=== PATIENT | male | born 1950 | race Caucasian/White ===

== ENCOUNTER 2019-08-28 10:08 | Outpatient (CLI) | payer MEDICARE, OTHER, SELFPAY ==
--- NOTE | ~2019-08-28 | XR_ITS ---
EXAMINATION: XR chest 2V EXAM DATE: 08/28/2019 10:30 INDICATION: Cough. TECHNIQUE: Frontal and lateral projections of the chest obtained and reviewed. There is no prior kortney dy for comparison. FINDINGS: The lungs are clear. There are no pleural effusions. The cardiomediastinal silhouette is within normal limits. There is no pneumothorax suspected. There are bony degenerative changes. IMPRESSION: No acute cardiopulmonary findings. Reviewed, dictated and finalized at location B. S CUTTER
== END 2019-08-28 10:09 | disposition home or self-care (01) ==
PROVIDERS: PCP Family Medicine; Visit Provider Physician Assistant
DX: R04.2 Hemoptysis (principal)
CPT/HCPCS: 71046

== ENCOUNTER → 2021-01-23 13:48 | Outpatient (CLI) | payer MEDICARE, OTHER, SELFPAY ==
--- NOTE | ~2021-01-23 | XR_ITS ---
EXAMINATION: XR thoracic spine 3V DATE: 01/23/2021 14:15 INDICATION: Back pain radiating down the legs images of the feet TECHNIQUE: AP, lateral and lateral swimmer's views of the thoracic spine were obtained. COMPARISON: 08/28/2019 FINDINGS: Alignment is normal. There is no fracture. The vertebral body heights are maintained. There is unchanged moderate loss of intervertebral disc space height of the midthoracic spine. Small degen erative osteophytes project from the anterior endplates of multiple vertebral bodies. IMPRESSION: 1. Moderate thoracic spondylosis without acute findings or significant interval change. Reviewed, dictated and finalized at location B.
== END ==
PROVIDERS: PCP Family Medicine; Visit Provider Family Medicine
DX: M47.894 Other spondylosis, thoracic region (principal)
CPT/HCPCS: 72072

== ENCOUNTER 2021-02-06 12:32 | Outpatient (CLI) | payer MEDICARE, OTHER, SELFPAY ==
--- NOTE | ~2021-02-06 | XR_ITS ---
EXAMINATION: XR lg joint inject/asp w image DATE: 02/06/2021 13:46 INDICATION: Right hip arthritis. TECHNIQUE: A time-out was performed to verify the patient's name, date of , and procedure to b e performed. The procedure including the risks, benefits, and alternatives was discussed with the pat ient. Risks discussed included bleeding and infection. The patient understood the risks and agreed to proceed. The skin overlying the right hip joint was prepped and draped in usual sterile fashion. A nesthetic was administered with 1% lidocaine subcutaneously. A 22 G needle was advanced under fluoro scopic guidance into the joint. Injection of 1 mL of Omnipaque 240 confirmed intra-articular positio n of the needle. Subsequently, injectate consisting of 2 mL 0.5% bupivacaine and 1 mL 80 mg/mL Depo- Medrol was instilled. The needle was removed and the entry site was cleaned and dressed. There were no immediate complications. Fluoroscopy exposure time was 0.1 minutes. The total number of images wa s 2. FINDINGS: Real-time fluoroscopy demonstrates the needle in the right hip joint. Patient's pain prior to procedure:/. Patient's pain following the procedure: 12/05. IMPRESSION: 1. Fluoroscopy guided right hip joint injection of local anesthetic and steroid with decrease in the patient's presenting pain. Reviewed, dictated and finalized at location A.
--- NOTE | ~2021-02-06 | XR_ITS ---
EXAMINATION: XR lg joint inject/asp add DATE: 02/06/2021 13:47 INDICATION: Left hip arthritis. TECHNIQUE: A time-out was performed to verify the patient's name, date of , and procedure to b e performed. The procedure including the risks, benefits, and alternatives was discussed with the pat ient. Risks discussed included bleeding and infection. The patient understood the risks and agreed to proceed. The skin overlying the left joint was prepped and draped in usual sterile fashion. Anesth etic was administered with 1% lidocaine subcutaneously. A 22 G needle was advanced under fluoroscopi c guidance into the joint. Injection of 1 mL of Omnipaque 240 confirmed intra-articular position of the needle. Subsequently, injectate consisting of 2 mL 0.5% bupivacaine and 1 mL 80 mg/mL Depo-Medro l was instilled. The needle was removed and the entry site was cleaned and dressed. There were no i mmediate complications. Fluoroscopy exposure time was 0.1 minutes. The total number of images was 2. FINDINGS: Real-time fluoroscopy demonstrates the needle in the left hip joint. Patient's pain prior t o procedure:03/07. Patient's pain following the procedure: 12/05. IMPRESSION: 1. Fluoroscopy guided left hip joint injection of local anesthetic and steroid with decrease in the p atient's presenting pain. Reviewed, dictated and finalized at location A. IMPRESSION: 1. Fluoroscopy guided left hip joint injection of local anesthetic and steroid with decrease in the patient's presenting pain.
== END 2021-02-06 12:33 | disposition home or self-care (01) ==
PROVIDERS: PCP Family Medicine; Visit Provider Orthopaedic Surgery
DX: M16.0 Bilateral primary osteoarthritis of hip (principal)
CPT/HCPCS: 20610; 77002; J1040; Q9966

== ENCOUNTER → 2021-08-11 00:55 | Outpatient (CLI) | payer MEDICARE, OTHER, SELFPAY ==
[2021-08-12 18:17] LABS: SARS-CoV-2 RNA PCR Negative
== END ==
PROVIDERS: PCP Family Medicine; Visit Provider Family Medicine
DX: Z20.822 Contact with and (suspected) exposure to COVID-19 (principal)
CPT/HCPCS: C9803; U0003; U0005

== ENCOUNTER 2022-05-09 00:39 | Day surgery (SDC) | payer MEDICARE, OTHER, SELFPAY ==
[2022-04-25 13:31] VITALS: BMI 22.9
--- NOTE | 2022-05-08 20:32 | PM.HPGS ---
History of Present Illness History of Present Illness Consent: Risks, benefits, and alternatives have been discussed and questions answered. Patient agrees to proceed with procedure. Chief complaint: dysphagia Narrative: Mukund Rodriguez is a 71 year old male who has had multiple episodes of choking, either on food, or mcous He has had a cervical fusion procedure. but he was having some symptoms prior to that. At times it will feel like food gets caught in his chest but more often he will choke as though he cannot get something to go down. A few occasions has felt that his airway was closing up. He has had issues with reflux and sometimes would regurgitate at night but starting Prilosec has taking care of that Review of Systems Review of Systems: All systems reviewed & are unremarkable except as noted in HPI and below PMFSH Past Medical History Medical History BPH (benign prostatic hyperplasia) Chronic anemia Surgical History Surgical History History of inguinal hernia repair, bilateral Family History Family History Mother Patient's mother is in good health Family history of elevated blood lipids Sibling Patient's brother is in good health Other Family history of arthritis Social History Social History Smoking packs per day: 0.5 Smoking cigarettes per day: 10.0 Years smoked: 20 Smoking pack-years: 10.00 Smoking status: Former smoker Tobacco type: cigarettes Second hand tobacco smoke exposure: No Smoking end date: 07/29/78 Alcohol intake: never Substance use: never Substance use type: does not use Living arrangements: with family Gender identity (if verbalized by the patient): Male Sexual Orientation (if Verbalized by the Patient): Straight or Heterosexual Spiritual care concerns: No Meds Home Medications and Allergies Home Medications Medication Instructions Recorded Confirmed Type acetaminophen 500 mg tablet 500 mg PO Q6H PRN Pain 01/26/21 05/09/22 History (Tylenol Extra Strength) omeprazole magnesium 20 mg 20 mg PO DAILY #30 tabs 09/26/21 05/09/22 Rx tablet,delayed release (Prilosec OTC) tamsulosin 0.4 mg capsule 0.4 mg PO DAILY #90 caps 01/26/22 05/09/22 Rx ramipril 2.5 mg capsule 2.5 mg PO DAILY 04/25/22 05/09/22 History Allergies Allergy/AdvReac Type Severity Reaction Status Date / Time No Known Allergies Allergy Verified 05/09/22 09:17 Exam Const: General: alert Orientation/consciousness: patient oriented x3 Resp: Auscultation: clear to auscultation bilaterally Cardio: Rhythm: regular rhythm GI: GI Palp: Yes Soft to palpation and No Tenderness to palpation present (GI) Neuro: General: patient oriented x3 Assessment and Plan Assessment and plan (1) Dysphagia: Code(s): R13.10 - Dysphagia, unspecified Status: Acute Assessment and Plan: EGD with possible biopsy or dilatation or cautery.
[2022-05-09 09:10] VITALS: BP 139/58; PULSE 70; RESP 18; TEMP 36.6; O2SAT 100; BMI 22.4
[2022-05-09] MEDS: LACTATED RINGERS 1,000 ML 150 ML IV CONT (09:36)
--- NOTE | 2022-05-09 09:57 | WPDANESEPPF ---
Anes - Initial Pre Proc Eval Procedure: Operation Date: 05/09/22 10:30 Proposed Procedures p Esophagogastroduodenoscopy - Judd Edwards MD Date/Time: 05/09/22 09:57 Surgeon: Judd Edwards MD Pre Op Diagnosis: dysphagia Patient Data Age: 71 Gender: M Height: 1.57 m Weight: 55.5 kg Last Vital Signs Temp 97.8 F 05/09/22 09:10 Pulse 70 05/09/22 09:10 Resp 18 05/09/22 09:10 BP 139/58 L 05/09/22 09:10 Pulse Ox 100 05/09/22 09:10 O2 Del Method Room Air 05/09/22 09:10 Allergies Allergy/AdvReac Type Severity Reaction Status Date / Time No Known Allergies Allergy Verified 05/09/22 09:17 Home Medications Medication Instructions Recorded Confirmed Type acetaminophen 500 mg tablet 500 mg PO Q6H PRN Pain 01/26/21 05/09/22 History (Tylenol Extra Strength) omeprazole magnesium 20 mg 20 mg PO DAILY #30 tabs 09/26/21 05/09/22 Rx tablet,delayed release (Prilosec OTC) tamsulosin 0.4 mg capsule 0.4 mg PO DAILY #90 caps 01/26/22 05/09/22 Rx ramipril 2.5 mg capsule 2.5 mg PO DAILY 04/25/22 05/09/22 History Patient hx anesthesia problems: none Family hx anesthesia problems: none Results Review: All pre-operative results and documents have been reviewed as part of the pre-operative evaluation. [facility] Past Medical History Medical History BPH (benign prostatic hyperplasia) Chronic anemia Surgical History Surgical History History of inguinal hernia repair, bilateral Family History Family History Mother Patient's mother is in good health Family history of elevated blood lipids Sibling Patient's brother is in good health Other Family history of arthritis Social History Social History Smoking packs per day: 0.5 Smoking cigarettes per day: 10.0 Years smoked: 20 Smoking pack-years: 10.00 Smoking status: Former smoker Tobacco type: cigarettes Second hand tobacco smoke exposure: No Smoking end date: 07/29/78 Alcohol intake: never Substance use: never Substance use type: does not use Living arrangements: with family Gender identity (if verbalized by the patient): Male Sexual Orientation (if Verbalized by the Patient): Straight or Heterosexual Spiritual care concerns: No Anes - Eval Final PreProcedure Day of Procedure 05/09/22 09:57 Patient weight: normal Heart: regular rate and rhythm Lungs: clear to auscultation Airway: Mallampati scale class II Neurological: alert and oriented Last oral intake: >/= 8 hours ASA classification: II Emergent: no Anesthetic plan: proceed Anesthesia type and monitoring: general GIVS and standard monitoring Results Review: All pre-operative results and documents have been reviewed as part of the pre-operative evaluation. Informed Consent: The patient's anesthetic plan and its attendant risks and benefits were discussed with the patient/family/POA. Questions were solicited and answers provided to the satisfaction of the patient/family/POA.
[2022-05-09 10:46] VITALS: BP 108/68; PULSE 78; RESP 15; O2SAT 98
[2022-05-09 10:56] VITALS: BP 109/69; PULSE 73; RESP 16; O2SAT 100
[2022-05-09 11:06] VITALS: BP 130/81; PULSE 69; RESP 22; O2SAT 99
== END 2022-05-09 11:13 | disposition home or self-care (01) ==
PROVIDERS: PCP Family Medicine; Visit Provider Internal Medicine Gastroenterology
PROC: 0DJ08ZZ Inspection of Upper Intestinal Tract, Via Natural or Artificial Opening Endoscopic (ICD-10-PCS; CPT 43235; principal; 2022-05-09 10:30)
DX: R13.10 Dysphagia, unspecified (principal); K21.9 Gastro-esophageal reflux disease without esophagitis; Z87.891 Personal history of nicotine dependence
CPT/HCPCS: 43239; 43450; 88305; J2704; J7120

== ENCOUNTER 2022-09-17 12:54 | Outpatient (CLI) | payer MEDICARE, OTHER, SELFPAY ==
--- NOTE | ~2022-09-17 | XR_ITS ---
EXAMINATION: XR lg joint inject/asp w image DATE: 09/17/2022 14:05 INDICATION: Right hip osteoarthritis TECHNIQUE: A time-out was performed to verify the patient's name, date of , and procedure to b e performed. The procedure including the risks, benefits, and alternatives was discussed with the pat ient. Risks discussed included bleeding and infection. The patient understood the risks and agreed to proceed. The skin overlying the right hip joint was prepped and draped in usual sterile fashion. A nesthetic was administered with 1% lidocaine subcutaneously. A 22 G needle was advanced under fluoro scopic guidance into the joint. Injection of 1 mL of Omnipaque 240 confirmed intra-articular positio n of the needle. Subsequently, injectate consisting of 3 mL of a 2:1 mixture of 0.5% Marcaine: 80 mg /mL Depo-Medrol for a total dosage of 80 mg Depo-Medrol was injected. Washout of contrast was seen co nfirming intra-articular administration. The needle was removed and the entry site was cleaned and dr essed. There were no immediate complications. Fluoroscopy exposure time was 0.1 minutes. The total n umber of images was 2. Total DAP was 0.655 Gycm^2 FINDINGS: Real-time fluoroscopy demonstrates the needle in the right hip joint. Patient's pain prior to procedure:11/05. Patient's pain following the procedure: 12/05. IMPRESSION: 1. Successful right hip joint injection of local anesthetic and steroid with slight increase in the p atient's presenting pain. Reviewed, dictated and finalized at location A. SCHOOL COMBINATION TEACHER IMPRESSION: 1. Successful right hip joint injection of local anesthetic and steroid with sl ight increase in the patient's presenting pain.
== END 2022-09-17 12:55 | disposition home or self-care (01) ==
LOC: ANHIMG 12:59
PROVIDERS: PCP Family Medicine; Visit Provider Orthopaedic Surgery
DX: M16.11 Unilateral primary osteoarthritis, right hip (principal)
CPT/HCPCS: 20610; 77002; J1040; Q9966

== ENCOUNTER → 2022-10-25 11:06 | Outpatient (CLI) | payer MEDICARE, OTHER, SELFPAY ==
--- NOTE | ~2022-10-25 | XR_ITS ---
XR wrist LT w scaphoid DATE: 10/25/2022 12:37 INDICATION: Left wrist pain TECHNIQUE: 4 views COMPARISON: None FINDINGS: Arterial calcification. Mild chondrocalcinosis at the triangular cartilage. Minimal carpal chondrocalcinosis. Mild osteoarthritis at the triscaphe and first carpometacarpal joints. There is osteoarthritis at the second metacarpophalangeal joint. No fracture, dislocation, periosteal reaction or bone destruction. IMPRESSION: Polyarticular osteoarthritis Mild chondrocalcinosis Arterial calcification Reviewed, dictated and finalized at location L.
== END ==
PROVIDERS: PCP Family Medicine; Visit Provider Physician Assistant
DX: M25.532 Pain in left wrist (principal); M19.032 Primary osteoarthritis, left wrist; M11.232 Other chondrocalcinosis, left wrist; I70.90 Unspecified atherosclerosis
CPT/HCPCS: 73110

== ENCOUNTER 2023-08-21 08:00 | Outpatient (CLI) | payer MEDICARE, OTHER, SELFPAY ==
--- NOTE | ~2023-08-21 | US_ITS ---
US art doppler w press LE BI INDICATION: Peripheral vascular disease. TECHNIQUE: Segmental pressures and plethysmographic and Doppler waveforms of the brachial and lower e xtremity arteries were obtained. COMPARISON: None. FINDINGS: Right and left brachial artery pressures of 154 mm Hg and 139 mm Hg, respectively, are concordant (no rmal difference <= 30 mmHg). The right ankle-brachial index (RUDDY) is 1.05 (normal >= 0.9-1.0). The right great toe-brachial index (TBI) is 0.51 (normal >= 0.60). The left RUDDY is 1.08. The left TBI is 0.44. IMPRESSION: 1. Normal bilateral ankle-brachial indices. 2: Mildly decreased toe brachial indices consistent with peripheral arterial disease. Reviewed, dictated and finalized at location B. ENT SAFETY MANAGER IMPRESSION: 1. Normal bilateral ankle-brachial indices. 2: Mildly decreased toe brachial indices consistent with peripheral arterial di sease.
== END 2023-08-21 08:01 | disposition home or self-care (01) ==
LOC: ANHIMG 08:07
PROVIDERS: PCP Family Medicine; Visit Provider Nurse Practitioner Family
DX: I70.90 Unspecified atherosclerosis (principal); I73.9 Peripheral vascular disease, unspecified
CPT/HCPCS: 93923

== ENCOUNTER 2023-09-25 10:30 | Outpatient (CLI) | payer MEDICARE, OTHER, SELFPAY ==
--- NOTE | ~2023-09-25 | US_ITS ---
EXAMINATION: US venous doppler [facility] DATE: 09/25/2023 10:59 INDICATION: Swelling and varicose veins at the bilateral lower limbs TECHNIQUE: Grayscale ultrasound images without and with compression and Doppler ultrasound images of the bilateral lower extremity veins were obtained. COMPARISON: None. FINDINGS: The visualized portions of right common femoral vein, profunda (deep) femoral vein, femoral vein, pop liteal vein, posterior tibial veins, peroneal veins, gastrocnemius vein and greater saphenous vein ou tflow are patent. The visualized portions of left common femoral vein, profunda femoral vein, femoral vein, popliteal v ein, posterior tibial veins, peroneal veins, gastrocnemius vein and greater saphenous vein outflow ar e patent. IMPRESSION: 1. No deep venous thrombosis in either lower limb. Reviewed, dictated and finalized at location B. RACTIVE MULTIMEDIA DESIGNER
== END 2023-09-25 10:31 | disposition home or self-care (01) ==
LOC: ANHIMG 10:31
PROVIDERS: PCP Family Medicine; Visit Provider Family Medicine
DX: I83.893 Varicose veins of bilateral lower extremities with other complications (principal)
CPT/HCPCS: 93970

== ENCOUNTER 2023-10-01 09:51 | Outpatient (CLI) | payer MEDICARE, OTHER, SELFPAY ==
--- NOTE | 2023-10-01 10:58 | ECG_ITS ---
Measurements Intervals [place] Rate: 62 P: 76 WI: 150 QRS: 21 QRSD: 81 T: 52 QT: 402 QTc: 409 Interpretive Statements SINUS RHYTHM BASELINE ARTIFACT- I, II, III, AVR, AVL, AVF, V1-V2 NORMAL ECG NO PREVIOUS ECG AVAILABLE FOR COMPARISON Electronically Signed On 10-01-2023 11:52:28 PSYCHIATRY RESIDENT by Jean-Claude Rivero D.O.
[2023-10-01 11:36] LABS: Albumin Level 4.2 g/dL (3.5-5.1); Anion Gap 7 mmol/L (8-16); Blood Urea Nitrogen 16 mg/dL (9-20); Calcium 8.9 mg/dL (8.4-10.2); Carbon Dioxide 28 mmol/L (22-30); Chloride 104 mmol/L (98-107); Estimated Glomerular Filt Rate > 60; Glucose 91 mg/dL (65-110); Potassium 3.9 mmol/L (3.4-5.0); Prothrombin Time 13.4 Seconds (11.1-14.7); Sodium 139 mmol/L (137-145)
[2023-10-01 11:37] LABS: Basophils Percent Auto 0.5 % (0.2-1.2); Eosinophils Absolute Auto 0.2 K/mm3 (0-0.3); Hematocrit 35.7 % (42.0-52.0); Hemoglobin 11.7 g/dL (14.0-18.0); Immature Granulocyte Absolute 0.02 K/mm3 (0.00-0.031); Immature Granulocyte Percent A 0.2 % (0-0.5); Lymphocytes Absolute Auto 2.54 K/mm3 (0.9-3.2); Lymphocytes Percent Auto 30.1 % (18.3-44.2); Mean Corpuscular HGB Conc 32.8 g/dl (32-36); Mean Corpuscular Hemoglobin 32.4 pg (26-34); Mean Corpuscular Volume 98.9 fl (80-100); Mean Platelet Volume 9.9 fl (7.4-10.4); Monocytes Absolute Auto 0.6 K/mm3 (0.1-0.6); Monocytes Percent Auto 6.8 % (2.6-8.5); Neutrophils Absolute Auto 5.1 K/mm3 (1.3-6.7); Neutrophils Percent Auto 60.4 % (45.5-73.1); Partial Thromboplastin Time 30.2 SECONDS (22.3-36.8); Platelet Count Result 316 k/mm3 (150-375); Red Blood Count 3.61 M/mm3 (4.6-6.20); Red Cell Distribution Width 11.8 % (11.5-14.5); White Blood Count 8.4 K/mm3 (4.5-10.0)
[2023-10-01 11:48] LABS: Hemoglobin A1C 5.1 % (<5.7)
[2023-10-01 12:29] LABS: Appearance Urine Clear (Clear); Bilirubin Urine Negative (Negative); Blood Urine Negative (Negative); Color Urine Yellow (Yellow); Glucose Urine UA Negative (Negative); Ketones Urine Negative (Negative); Leukocyte Esterase Ur Negative LEU/UL (Negative); Nitrate Urine Negative (Negative); Protein Urine Negative (Negative); Specific Grav Ur 1.017 (1.001-1.035); Urobilinogen Urine 0.2 mg/dL (<2.0); pH Urine 5.5 (5.0-9.0)
[2023-10-01 12:32] LABS: Add Urine Microscopic? NO
[2023-10-01 12:38] LABS: Urine Cotinine NEGATIVE
[2023-10-01 13:07] LABS: MRSA (PCR) NOT DETECTED (NOT DETECTE)
== END 2023-10-01 09:52 | disposition home or self-care (01) ==
LOC: ANHSURGERY 09:58
PROVIDERS: PCP Family Medicine; Visit Provider Orthopaedic Surgery
DX: Z01.818 Encounter for other preprocedural examination (principal); M16.11 Unilateral primary osteoarthritis, right hip
CPT/HCPCS: 80048; 80307; 81003; 82040; 83036; 85025; 85610; 85730; 87641; 93005

== ENCOUNTER 2023-10-15 00:08 | Day surgery (SDC) | payer MEDICARE, OTHER, SELFPAY ==
--- NOTE | 2023-10-01 09:56 | PC.NURSE ---
Addendum entered by Rosetta Torres RN 10/01/23 11:05: PATIENT HAS ALREADY STARTED HOLDING KEISHA ASPIRIN, WHICH HE USES FOR PAIN. HE RELAYS UNDERSTANDING THAT IT NEEDS TO BE HELD 7 DAYS PRE-OP(LAST DOSE 10/07/23). Original Note: Report to the Outpatient Waiting Room, entrance under the green pavilion located off [facility], at time __6:00AM on date ___10/15/23____. Planned Procedure Time: __7:30AM . Time changes happen often and if your time is changed the preop area will call you the afternoon before. - You and your visitor will be asked to self-screen and do not enter if you have any COVID symptoms. - A mask is optional within the hospital at this time. Patients may have clear liquids (water, carbonated beverages, clear teas, apple juice) until 3 hours prior to surgery with a maximum of 20 ounces. - No food from midnight until time of surgery. Take the following medications with a SIP of water the morning of surgery: ____NONE DO NOT STOP ANY OF YOUR OTHER PRESCRIPTION MEDICATIONS PRIOR TO SURGERY ?EXCEPT THE FOLLOWING Medications to discontinue per physician NONE Date to take last dose Please no make-up, nail danish, hairspray, perfume, deodorant, or body powder the day of surgery. No jewelry (including any body piercings) or valuables the day of surgery, leave them at home. Please take a shower or bath the night before, or the morning of, surgery with an antibacterial soap. Wear comfortable, loose fitting clothing. - Jewelry must be removed prior to entering the operating room. Rings and piercings that are not removed may be cut off. - The hospital will not accept responsibility for valuables. - Please leave all valuables, including medications, at home the day of surgery. If you are going home after surgery, a licensed milk tanker driver must drive you home. - NO public transportation without another adult if you receive anesthesia. - We recommend that an adult stay with you for 24 hours following discharge. - We also recommend that you do not drive, make important decision, drink alcoholic beverages, or take any drugs that were not prescribed by your health care provider for at least 24 hours after your discharge time. Follow any additional instructions given to you from your surgeon. HIBICLENS SHOWER PER DR YOST. NO SHAVING OF BODY HAIR. If you or anyone in your household have experienced Covid symptoms in the past week, please notify your surgeon or the nurse liaison at the phone number below for possible testing. Telephone instructions given to ___PATIENT and asked if any additional questions and then verbalized understanding. Patient advised to call surgeon office or pre surgery nurse liaison [phone] if any additional questions.
[2023-10-01 10:15] VITALS: BP 155/54; PULSE 66; RESP 16; TEMP 36.9; O2SAT 99; BMI 25.2
[2023-10-15] VITALS (19 sets, daily range): BP systolic 112–133; BP diastolic 43–57; PULSE 46–78; RESP 12–18; TEMP 36.6–37.1; O2SAT 95–100; BMI 24.1
--- NOTE | ~2023-10-15 | XR_ITS ---
EXAMINATION: XR hip RT 1V DATE: 10/15/2023 11:25 INDICATION: Postoperative evaluation following right total hip arthroplasty TECHNIQUE: Anteroposterior view of the right hip was obtained. COMPARISON: Radiographs dated 08/09/2023 FINDINGS: Interval placement of a noncemented right total hip arthroplasty which appears well seated in near an atomic alignment. The acetabular component is affixed with at least 3 screws. Expected small amount o f subcutaneous gas in the postoperative bed. No fractures identified. Likely bilateral vasectomy cli ps project over the scrotum. IMPRESSION: 1. Right total hip arthroplasty, negative for postoperative purposes. Reviewed, dictated and finalized at location A.
[2023-10-15] MEDS: ACETAMINOPHEN 500 MG TABLET 1000 MG PO (06:30)
[2023-10-15] MEDS: LACTATED RINGERS 1,000 ML 30 ML IV CONT ×2 (06:30→10:42)
--- NOTE | 2023-10-15 06:43 | WPDANESEPPF ---
Anes - Initial Pre Proc Eval Procedure: Operation Date: 10/15/23 07:30 Proposed Procedures p Right Total Hip Arthroplasty - Hari Tena MD Date/Time: 10/15/23 06:43 Surgeon: Hari Tena MD Pre Op Diagnosis: Rt Hip O.A. Patient Data Age: 73 Gender: M Height: 1.55 m Weight: 60.5 kg Last Vital Signs Temp 36.9 C 10/01/23 10:15 Pulse 66 10/01/23 10:15 Resp 16 10/01/23 10:15 BP 155/54 H 10/01/23 10:15 Pulse Ox 99 10/01/23 10:15 O2 Del Method Room Air 10/01/23 10:15 Allergies Allergy/AdvReac Type Severity Reaction Status Date / Time No Known Allergies Allergy Verified 10/01/23 10:05 Home Medications Medication Instructions Recorded Confirmed Type acetaminophen 500 mg tablet 500 mg PO Q6H PRN Pain 01/26/21 10/01/23 History (Tylenol Extra Strength) aspirin-caffeine 500 mg-32.5 mg 1 tablet PO QAM 10/01/23 10/01/23 History tablet ([facility]) chlorhexidine gluconate 4 % 1 applic topical DAILY #237 mL 10/01/23 10/01/23 Rx topical liquid (Hibiclens) oiipbmzk-wxyn-prasl acid 400 1 tablet PO DAILY 10/01/23 10/01/23 History mcg-lycopene 600 mcg-ginkgo 120 mg tablet ramipril 2.5 mg capsule 2.5 mg PO QAM 10/01/23 10/01/23 History tamsulosin 0.4 mg capsule 0.4 mg PO HS 10/01/23 10/01/23 History omeprazole 40 mg capsule,delayed 40 mg PO QAM #90 caps 10/08/23 Rx release Patient hx anesthesia problems: none Family hx anesthesia problems: none Results Review: All pre-operative results and documents have been reviewed as part of the pre-operative evaluation. [facility] Past Medical History Medical History Arterial calcification BPH (benign prostatic hyperplasia) Chronic anemia Other fatigue Peripheral artery disease Surgical History Surgical History History of inguinal hernia repair, bilateral Family History Family History Mother Patient's mother is in good health Family history of elevated blood lipids Sibling Patient's brother is in good health Other Family history of arthritis Social History Social History Smoking packs per day: 1 Smoking cigarettes per day: 20.0 Years smoked: 12 Smoking pack-years: 12.00 Smoking status: Former smoker Tobacco type: cigarettes Second hand tobacco smoke exposure: No Smoking end date: 01/26/79 Alcohol intake: never Substance use: never Substance use type: does not use Living arrangements: with family Additional living arrangements comments: Occupation/Education: retired Gender identity (if verbalized by the patient): Male Sexual Orientation (if Verbalized by the Patient): Straight or Heterosexual Spiritual care concerns: No Anes - Eval Final PreProcedure Day of Procedure 10/15/23 06:43 Patient weight: normal Heart: regular rate and rhythm Lungs: clear to auscultation Airway: Mallampati scale class II Neurological: alert and oriented Last oral intake: >/= 8 hours ASA classification: III Emergent: no Anesthetic plan: proceed Anesthesia type and monitoring: general ETT and standard monitoring Results Review: All pre-operative results and documents have been reviewed as part of the pre-operative evaluation. Informed Consent: The patient's anesthetic plan and its attendant risks and benefits were discussed with the patient/family/POA. Questions were solicited and answers provided to the satisfaction of the patient/family/POA.
[2023-10-15] MEDS: TRANEXAMIC ACID 1,000MG/ISO100 1,000 MG/100 ML BAG 200 MG IVPB (07:00)
--- NOTE | 2023-10-15 07:17 | WPDHPUPDATE1 ---
History and Physical Update Update Date/Time: 10/15/23 07:17 History and Physical has been reviewed, including an updated exam of the patient. There are NO changes in the patient's condition. Risks, benefits, and alternatives have been discussed and questions answered. Patient agrees to proceed with procedure.
[2023-10-15] MEDS: ceFAZolin 2 GM/D5W 50 ML 2 GM/50 ML BAG IVPB ×2 (07:28→18:23)
[2023-10-15] MEDS: SODIUM CHLORIDE 0.9% IV 37.7 ML, MORPHINE SULFATE INJ (*CRX) 2 MG, ROPivacaine HCL 1% 2... INFILTRATE (08:08)
[2023-10-15] MEDS: TRANEXAMIC ACID 1,000 MG/10 ML AMPUL 1000 MG IV PUSH (09:52)
--- NOTE | 2023-10-15 10:47 | P.OP_ITS ---
Procedure Note - Detailed Date of Procedure 10/15/23 Pre-op Diagnosis Rt Hip djd Post-op Diagnosis Same Procedure Performed R ANJALI Surgeon Hari Tena MD Anesthesia General Description of Procedure THE PATIENT WAS TAKEN TO THE OPERATING ROOM IN STABLE CONDITION AND WAS PLACED IN THE LATERAL DECUBITUS AND THE RIGHT LOWER EXTREMITY WAS PREPPED AND DRAPED IN THE STERILE FASHION. INCISION WAS MADE IN THE POSTERIOR LATERAL SIDE OF THE HIP, DOWN TO THE FASCIA LAYER. THE FASCIA WAS INCISED. THE HIP WAS EXPOSED. THE SHORT EXTERNAL ROTATORS WERE EXPOSED. THE SCIATIC NERVE WAS IDENTIFIED. INCISION WAS MADE THROUGH THE SHORT EXTERNAL ROTATORS AND THE CAPSULE OF THE HIP JOINT. THE HIP WAS DISLOCATED. AN OSTEOTOMY WAS MADE TO THE FEMORAL NECK ABOUT 1 CM PROXIMAL TO THE LESSER TROCHANTER. THE ACETABULUM WAS EXPOSED. THE ACETABULUM WAS SHALLOW AND WIDE AT THE SUPERIOR AND LATERAL LEUNG. THERE WAS LOKESH E DEFICIENT BONE STOCK IN THE SUPERIOR LATERAL WALL. THERE WAS SEVERE DJD SEEN. BEGINNING WITH A 49 REAMER THE ACETABULUM WAS REAMED TO 55 MM. BONE GRAFT WAS PLACED IN THE MEDIAL WALL AND SUPERIOR LATERAL WALL. A 55 MM TRIAL WAS PLACED IN 35 DEG OF ABDUCTION AND ANTEVERSION WAS IN ALIGNMENT WITH THE TRANS ACETABULAR LIGAMENT. THE FIT WAS EXCELLENT. THE TRIAL WAS REMOVED. A 56 MM BIOMET G7 COMPONENT WAS THEN TAPPED IN TO PLACE IN 35 DEG OF ABDUCTION AND ANTEVERSION IN ALIGNMENT WITH THE TRANSVERSE ACETABULAR LIGAMENT. 3 SCREWS WERE PLACED TO SECURE THE ACETABULAR IMPLANT. THE SCREWS HAD EXCELLENT BITES. THE ACETABULAR LINER WAS PLACED AND CHECKED FOR STABILITY. NEXT THE FEMUR WAS PREPARED WITH INITIAL CANAL FINDER THEN SEQUENTIAL BROACHING WITH A TAPERLOC HIP SYSTEM, UNTIL A 12 BROACH FIT WELL IN 15 OF ANTEVERSION. A 0 HIGH OFFSET NECK WITH 36 MM HEAD TRIAL WAS PLACED. THE SHUCK TEST WAS EXCELLENT AND THE STABILITY IN FLEXION AND ROTATION WAS EXCELLENT. LEG LENGTHS WERE GROSSLY EQUAL. TRIALS WERE REMOVED. A BIOMET TAPERLOC 12 STEM WAS PLACED WITH A HIGH OFFSET NECK. THE FIT WAS EXCELLENT IN 15 DEG OF ANTEVERSION. A 0 CERAMIC 36 MM FEMORAL HEAD WAS PLACED. THE HIP WAS TRIALED AND THE STABILITY WAS EXCELLENT WERE THE LEG LENGTHS AND THE SHUCK TEST. THE WOUND WAS IRRIGATED WITH STERILE BETADINE AND WATER FOR 3 MIN. THEN WASHED AGAIN. THE SCIATIC NERVE WAS IDENTIFIED AGAIN. THE CAPSULE AND THE EXTERNAL ROTATORS WERE APPROXIMATED WITH NUMBER 1 VICRYL. THE FASCIA WITH No 2 QUIL AND THE SUB CUTANEOUS LAYER WITH 2-0 ABSORBABLE SUTURE AND A RUNNING 3-0 SUBCUTICULAR STITCH FOR THE SKIN. DERMABOND WAS PLACED AND STERILE DRESSING WAS APPLIED. PATIENT WAS PLACED BACK ON TO THE SUPINE POSITION AND WAS EXTUBATED Estimated Blood Loss -150.0 Complications No immediate complications Condition Stable Disposition PACU
[2023-10-15] MEDS: fentaNYL CITRATE INJ (*CRX) 100 MCG/2 ML VIAL 25 MCG IV PUSH ×12 (11:02→13:01)
--- NOTE | 2023-10-15 12:20 | SUR.PHASEI ---
1219: placed in extended recovery
[2023-10-15] MEDS: ONDANSETRON INJ 4 MG/2 ML VIAL IV PUSH ×2 (12:40→20:22)
[2023-10-15] MEDS: diphenhydrAMINE HCl INJ 50 MG/ML VIAL 12.5 MG IV PUSH (13:14)
--- NOTE | 2023-10-15 14:42 | ADMGEN ---
This patient, Mukund Rodriguez, was admitted to -. Patient/family oriented to hospital policies and general routines including ID bracelet, bed and alarms, visiting hours, pain management, procedures, bathroom and other care routines, personal items, smoking policy, room service/diet, and visiting hours. Information on how to activate the Rapid Response Team has been discussed. Patient/Family are encouraged to report perceived risks to care and to ask questions if they do not understand what they are told or what they should do.
[2023-10-15] MEDS: SENNA/DOCUSATE SODIUM TABLET 2 TAB PO (18:23)
[2023-10-15] MEDS: PANTOPRAZOLE 40 MG TABLET PO (18:23)
[2023-10-15] MEDS: HYDROcodone/acetaminophen (*CRX) 7.5-325 MG TABLET 1 TAB PO (18:24)
[2023-10-15] MEDS: TAMSULOSIN HCL 0.4 MG CAPSULE PO (20:21)
[2023-10-15] MEDS: ASPIRIN 325 MG ENTERIC TABLET PO (20:21)
[2023-10-16] MEDS: HYDROcodone/acetaminophen (*CRX) 7.5-325 MG TABLET 1 TAB PO ×3 (00:07→13:51)
[2023-10-16] MEDS: ceFAZolin 2 GM/D5W 50 ML 2 GM/50 ML BAG IVPB ×2 (00:07→08:34)
[2023-10-16] MEDS: MAG HYDROX/AL HYDROX/SIMETH 30 ML UDC PO (00:07)
[2023-10-16 01:05] VITALS: BP 127/56; PULSE 85; RESP 16; TEMP 36.9; O2SAT 100
[2023-10-16 05:07] VITALS: BP 121/50; PULSE 86; RESP 18; TEMP 37.2; O2SAT 99
[2023-10-16 06:30] LABS: Basophils Percent Auto 0.2 % (0.2-1.2); Eosinophils Percent Auto 0.1 % (0-4.4); Hematocrit 26.5 % (42.0-52.0); Hemoglobin 8.9 g/dL (14.0-18.0); Immature Granulocyte Absolute 0.05 K/mm3 (0.00-0.031); Immature Granulocyte Percent A 0.5 % (0-0.5); Lymphocytes Absolute Auto 1.84 K/mm3 (0.9-3.2); Lymphocytes Percent Auto 18.4 % (18.3-44.2); Mean Corpuscular HGB Conc 33.6 g/dl (32-36); Mean Corpuscular Hemoglobin 32.7 pg (26-34); Mean Corpuscular Volume 97.4 fl (80-100); Mean Platelet Volume 10.2 fl (7.4-10.4); Monocytes Absolute Auto 0.9 K/mm3 (0.1-0.6); Monocytes Percent Auto 9.2 % (2.6-8.5); Neutrophils Absolute Auto 7.2 K/mm3 (1.3-6.7); Neutrophils Percent Auto 71.6 % (45.5-73.1); Platelet Count Result 246 k/mm3 (150-375); Red Blood Count 2.72 M/mm3 (4.6-6.20); Red Cell Distribution Width 11.9 % (11.5-14.5)
[2023-10-16 06:44] LABS: Anion Gap 4 mmol/L (8-16); Blood Urea Nitrogen 20 mg/dL (9-20); Calcium 8.3 mg/dL (8.4-10.2); Carbon Dioxide 29 mmol/L (22-30); Chloride 100 mmol/L (98-107); Estimated CRCL calculation 35 ml/min; Estimated Glomerular Filt Rate 59; Glucose 108 mg/dL (65-110); Potassium 4.1 mmol/L (3.4-5.0); Sodium 133 mmol/L (137-145)
--- NOTE | 2023-10-16 07:26 | P.PNAN_ITS ---
Anes - Prog Note Post-Op Date/Time: 10/16/23 07:26 Cardiovascular status: normal Respiratory status: normal Airway patency: baseline Mental status: baseline Post-Op hydration status: normal Vital Signs: Last Vital Signs Temp 37.2 C 10/16/23 05:07 Pulse 86 10/16/23 05:07 Resp 18 10/16/23 05:07 BP 121/50 L 10/16/23 05:07 Pulse Ox 99 10/16/23 05:07 O2 Del Method Room Air 10/15/23 18:36 O2 Flow Rate 8 10/15/23 10:42 Pain Score (VAS): 1 I/O: Intake & Output 10/15/23 10/15/23 10/16/23 15:59 23:59 07:59 Intake Total 300 770 550 Output Total 100 625 Balance 300 670 -75 Laboratory Tests 10/16/23 06:05 10/16/23 06:05 10/15/23 10/16/23 06:25 06:05 WBC 10.0 RBC 2.72 L Hgb 8.9 L Hct 26.5 L MCV 97.4 MCH 32.7 MCHC 33.6 RDW 11.9 Plt Count 246 MPV 10.2 Immature Gran % (Auto) 0.5 Neut % (Auto) 71.6 Lymph % (Auto) 18.4 [place] % (Auto) 9.2 H Eos % (Auto) 0.1 Baso % (Auto) 0.2 Lymph # (Auto) 1.84 [place] # (Auto) 0.9 H Eos # (Auto) 0.0 Baso # (Auto) 0.0 Abs Immat Gran (auto) 0.05 H Absolute Neuts (auto) 7.2 H Absolute Nucleated RBC 0.000 Nucleated RBC % 0.0 Sodium 133 L Potassium 4.1 Chloride 100 Carbon Dioxide 29 Anion Gap 4 L BUN 20 Creatinine 1.20 Estim Creat Clear Calc 35 Estimated GFR 59 Glucose 108 Calcium 8.3 L Blood Type A Positive Antibody Screen Negative Post-procedural complaints: none Patient Feedback: Patient satisfied with anesthetic care.
[2023-10-16 07:48] VITALS: PULSE 67; O2SAT 100
[2023-10-16] MEDS: SENNA/DOCUSATE SODIUM TABLET 2 TAB PO (08:34)
[2023-10-16] MEDS: polyethylene glycoL 3350 17 GM POWD.PACK PO (08:34)
[2023-10-16] MEDS: ASPIRIN 325 MG ENTERIC TABLET PO (08:34)
[2023-10-16] MEDS: CELECOXIB 200 MG CAPSULE PO (08:34)
[2023-10-16] MEDS: PANTOPRAZOLE 40 MG TABLET PO (08:34)
[2023-10-16 10:08] VITALS: BP 115/52; PULSE 74; RESP 14; TEMP 36.6; O2SAT 99
--- NOTE | 2023-10-16 10:35 | PM.PNORT ---
Progress Note: A&P Assessment and Plan (1) Degenerative joint disease (DJD) of hip: Qualifiers: Laterality: bilateral Osteoarthritis type: primary Qualified Code(s): M16.0 - Bilateral primary osteoarthritis of hip Code(s): M16.9 - Osteoarthritis of hip, unspecified Status: Acute Assessment and Plan: POD 1 DOING WELL. HE HAS GOOD PROGRESS WITH PT. OK TO DC HOME WITH HOME PT AND NURSING. HE WILL F/U IN 3 WEEKS. Subjective Subjective Date/Time Seen: 10/16/23 10:35 Interval history: POD 1 DOING WELL. PAIN WELL CONTROLLED GOOD PROGRESS WITH PT, NO CALF PAIN Exam Extrem: Other: VSS AFEBRILE DRESSING DRY NV INTACT NEG HOMANS SIGN CALF SOFT NON TENDER. Objective Data Vital Signs Vital Signs: Vital Signs - 24 hr 10/15/23 10:42 10/15/23 10:50 10/15/23 10:57 Temperature 36.6 C Pulse Rate 58 L 49 L Respiratory Rate 16 14 Blood Pressure 119/45 L 121/55 L Pulse Oximetry 98 100 100 Oxygen Delivery Simple Face Mask Room Air Room Air Oxygen Flow Rate 8 10/15/23 11:00 10/15/23 11:15 10/15/23 11:30 Temperature Pulse Rate 48 L 48 L 46 L Respiratory Rate 14 14 12 Blood Pressure 122/51 L 123/55 L 129/56 L Pulse Oximetry 100 99 100 Oxygen Delivery Room Air Room Air Room Air Oxygen Flow Rate 10/15/23 11:45 10/15/23 12:00 10/15/23 12:15 Temperature Pulse Rate 50 L 46 L 48 L Respiratory Rate 16 12 12 Blood Pressure 123/53 L 112/52 L 117/51 L Pulse Oximetry 99 99 99 Oxygen Delivery Room Air Room Air Room Air Oxygen Flow Rate 10/15/23 12:45 10/15/23 13:01 10/15/23 13:19 Temperature Pulse Rate 50 L 54 L 50 L Respiratory Rate 13 13 14 Blood Pressure 120/51 L 118/56 L 120/54 L Pulse Oximetry 95 99 Oxygen Delivery Room Air Room Air Room Air Oxygen Flow Rate 10/15/23 13:45 10/15/23 14:15 10/15/23 14:40 Temperature 36.9 C Pulse Rate 59 L 58 L 63 Respiratory Rate 18 18 16 Blood Pressure 130/47 L 113/46 L 125/43 L Pulse Oximetry 100 Oxygen Delivery Room Air Room Air Oxygen Flow Rate 10/15/23 15:14 10/15/23 14:55 10/15/23 16:54 Temperature 36.7 C 37.0 C Pulse Rate 65 78 Respiratory Rate 18 18 Blood Pressure 119/46 L 123/55 L Pulse Oximetry 98 99 Oxygen Delivery Room Air Oxygen Flow Rate 10/15/23 18:36 10/15/23 21:00 10/16/23 01:05 Temperature 37.1 C 36.9 C Pulse Rate 74 85 Respiratory Rate 18 16 Blood Pressure 128/57 L 127/56 L Pulse Oximetry 99 100 Oxygen Delivery Room Air Oxygen Flow Rate 10/16/23 05:07 10/16/23 07:48 10/16/23 10:08 Temperature 37.2 C 36.6 C Pulse Rate 86 67 74 Respiratory Rate 18 14 Blood Pressure 121/50 L 115/52 L Pulse Oximetry 99 100 99 Oxygen Delivery Room Air Oxygen Flow Rate 10/16/23 08:51 Temperature Pulse Rate Respiratory Rate Blood Pressure Pulse Oximetry Oxygen Delivery Room Air Oxygen Flow Rate Intake/Output Intake/Output: Intake & Output 10/13/23 10/14/23 10/15/23 10/16/23 23:59 23:59 23:59 23:59 Intake Total 1220 1050 Output Total 100 625 Balance 1120 425 Meds/Results Medications: Active Medications Generic Name Dose Route Start Last Admin Trade Name Freq PRN Reason Stop Dose Admin Acetaminophen 650 mg 10/15/23 14:37 Acetaminophen 325 Mg Tablet PO Q6H PRN Mild Pain (1-3) or Fever Hydrocodone Bitart/Acetaminophen 1 tab 10/15/23 14:37 10/16/23 03:08 Hydrocodone/Acetaminophen (*Crx) 7.5-325 Mg Tablet PO 1 tab Q3H PRN Administration Pain Rated 4-6 Hydrocodone Bitart/Acetaminophen 2 tab 10/15/23 14:37 Hydrocodone/Acetaminophen (*Crx) 7.5-325 Mg Tablet PO Q6H PRN Pain Rated 7-10 Al Hydrox/Mg Hydrox/Simethicone 30 ml 10/15/23 14:37 10/16/23 00:07 Mag Hydrox/Al Hydrox/Simeth 30 Ml Udc PO 30 ml Q6H PRN Administration Indigestion Aspirin 325 mg 10/15/23 21:00 10/16/23 08:34 Aspirin 325 Mg Enteric Tablet PO 325 mg Q12HR [facility] Administrati
--- NOTE | 2023-10-16 14:43 | PM.DS ---
DS: Admitting Diagnosis Discharge Date 10/16/23 Admitting Diagnosis right hip djd DS: Discharge Diagnosis Discharge Diagnosis (1) Degenerative joint disease (DJD) of hip: Qualifiers: Osteoarthritis type: primary Laterality: bilateral Qualified Code(s): M16.0 - Bilateral primary osteoarthritis of hip Code(s): M16.9 - Osteoarthritis of hip, unspecified Status: Acute DS: Summary Hospital Course Reason for hospitalization: r breanne Hospital Course: PATIENT WAS ADMITTED S/P TOTAL HIP ARTHROPLASTY FOR POSTOPERATIVE MEDICAL MANAGEMENT, PAIN CONTROL AND MOBILIZATION WITH PHYSICAL AND OCCUPATIONAL THERAPY. THE PATIENT PROGRESSED WELL WITH PT/OT. LABS AND VITALS REMAINED STABLE AND PAIN WELL CONTROLLED. THE PATIENT HAS BEEN CLEARED TO BE DISCHARGED HOME. FOLLOW UP APPOINTMENT SCHEDULED. DISCHARGE INSTRUCTIONS DISCUSSED AT LENGTH WITH THE PATIENT. MEDICATIONS REVIEWED. Status at Discharge Cognitive/behavioral status at discharge: STABLE Time Spent with Patient Time attestation: Total time spent providing and/or coordinating discharge services: DS: Data Data Completed and Pending Labs on day of discharge: Labs from last 24 hours 10/16/23 06:05 WBC 10.0 RBC 2.72 L Hgb 8.9 L Hct 26.5 L MCV 97.4 MCH 32.7 MCHC 33.6 RDW 11.9 Plt Count 246 MPV 10.2 Immature Gran % (Auto) 0.5 Neut % (Auto) 71.6 Lymph % (Auto) 18.4 [place] % (Auto) 9.2 H Eos % (Auto) 0.1 Baso % (Auto) 0.2 Lymph # (Auto) 1.84 [place] # (Auto) 0.9 H Eos # (Auto) 0.0 Baso # (Auto) 0.0 Abs Immat Gran (auto) 0.05 H Absolute Neuts (auto) 7.2 H Absolute Nucleated RBC 0.000 Nucleated RBC % 0.0 Sodium 133 L Potassium 4.1 Chloride 100 Carbon Dioxide 29 Anion Gap 4 L BUN 20 Creatinine 1.20 Estim Creat Clear Calc 35 Estimated GFR 59 Glucose 108 Calcium 8.3 L Discharge Plan Discharge Patient Disposition: Home, Self-Care Discharge Instructions: HARI TENA M.D. [facility] [address] [place] [address] POST OPERATIVE DISCHARGE INSTRUCTIONS FOLLOWING TOTAL HIP REPLACEMENT SURGERY ? Your dressing will be changed prior to your discharge. You will be sent home with one additional dressing to be changed on post op day 7 by the home health RN. You may remove the dressing on post op day 14. Your incision was closed with dermabond, allow the dermabond to fall off naturally once your dressing is removed. Do not pull at the dermabond or disrupt incision healing. ? You may shower with your dressing but do not submerge in a bath tub. ? Do not drive or operate machinery until you are released by Dr. Tena. ? Do not walk without a walker for any reason until you are released by Dr. Tena. ? Continue to apply ice to the hip intermittently for additional pain relief. Protect your skin with a towel or pillow case. ? Unless otherwise instructed by Dr. Tena you me be weight bearing as tolerated with your walker. ? Continue to follow strict total hip replacement precautions. ? Your first post op appointment was sent to you via mail preoperatively. If you have any questions or are unable to make your appointment, please contact our office for scheduling questions. ? Your medications have been sent to your pharmacy. You have been sent home with pain medication. We have also sent you with a stool softener as narcotics can cause constipation. Please keep this in mind during your postoperative recovery. If you are not experiencing regular bowel movements, please contact our office for further instruction. ? Please contact our office with any questions regarding your hip at [phone]. TAKE 2 ASPIRINS (325 MG) A DAY FOR 3 WEEKS TO PREVENT BLOOD CLOTS Stand Alone Forms: General Discharge Instructions Follow-up/Referrals: Hari Tena MD [Physician] - 3 Weeks Discharge Medications: New hydrocodone-aceta
== END 2023-10-16 16:00 | disposition home health service (06) ==
LOC: ANHSURGERY 06:12 → ANH3MED 14:43
PROVIDERS: PCP Family Medicine; Visit Provider Orthopaedic Surgery
PROC: (CPT 27130; principal; 2023-10-15 07:30)
DX: M16.11 Unilateral primary osteoarthritis, right hip (principal); N40.0 Benign prostatic hyperplasia without lower urinary tract symptoms; I73.9 Peripheral vascular disease, unspecified; Z87.891 Personal history of nicotine dependence
CPT/HCPCS: 27130; 36415; 73501; 80048; 85025; 86850; 86900; 86901; 97110; 97116; 97161; 97166; 97530; 97535; A9270; C1713; C1776; J0171; J0690; J1100; J1200; J1885; J2270; J2405; J2704; J2795; J3010; J7120

== ENCOUNTER 2023-11-28 13:26 | Outpatient (CLI) | payer MEDICARE, OTHER, SELFPAY ==
--- NOTE | 2023-11-28 13:32 | ECHO_ITS ---
Patient Info Name: Mukund Rodriugez Age: 73 years : 1950 Gender: Male Ht: 62 in Wt: 128 lbs BSA: 1.60 m2 HR: 64 bpm BP: 153 / 66 mmHg Heart Rhythm: Sinus Rhythm Technical Quality: Good Exam Date: 11/28/2023 1:58 PM Exam Location: Echo Lab Patient Status: Outpatient Admit Date: 11/28/2023 Staff Ordering Physician: Man Wynn MD Banking Pin Adjuster: Rafael Herrera RDCS Attending Provider: Man Wynn MD Referring Physician: Kingsley CARLOS; Exam Type: CA echo doppler color flow Study Info Indications - essential hypertension Complete two-dimensional, color flow and Doppler transthoracic echocardiogram is performed. Summary 1. Complete two-dimensional, color flow and Doppler transthoracic echocardiogram is performed. 2. Left ventricular chamber dimension is normal. 3. Left ventricular systolic function is normal, estimated at 60-65%. 4. The left ventricular diastolic function is grade I diastolic dysfunction. 5. E/e' 11 is mildly elevated. 6. Left atrial chamber dimension is mildly enlarged. 7. There is mild aortic valve sclerosis. 8. There is mild aortic valve regurgitation. 9. There is mild to moderate mitral valve regurgitation. 10. There is trace tricuspid valve regurgitation. 11. No pulmonary hypertension, estimated pulmonary arterial systolic pressure is 17 mmHg. 12. There is trace pulmonic regurgitation. Left Ventricle E/e' 11 is mildly elevated. Left ventricular chamber dimension is normal. Left ventricular systolic function is normal, estimated at 60-65%. The left ventricular diastolic function is grade I diastolic dysfunction. Right Ventricle Right ventricular systolic function is normal and with normal TAPSE 3.1 cm. Right ventricular chamber dimension is normal. Left Atria Left atrial chamber dimension is mildly enlarged. Right Atria Right atrial chamber dimension is normal. Aortic Valve The aortic valve is trileaflet. There is mild aortic valve sclerosis. There is no aortic valve stenosis. There is mild aortic valve regurgitation. Pulmonic Valve There is trace pulmonic regurgitation. Mitral Valve There is no mitral valve stenosis. There is mild to moderate mitral valve regurgitation. Tricuspid Valve There is trace tricuspid valve regurgitation. No pulmonary hypertension, estimated pulmonary arterial systolic pressure is 17 mmHg. Pericardium/Pleural There is no pericardial effusion. Inferior Vena Cava Normal inferior vena cava with >50% collapse upon inspiration consistent with normal right atrial pressure, 5 mmHg. Aorta The aortic root size at the sinus of Valsalva is normal. Left Ventricular Outflow Tract Name Value Normal LVOT 2D LVOT Diameter 1.9 cm LVOT Doppler LVOT Peak Gradient 7 mmHg LVOT Mean Gradient 4 mmHg LVOT VTI 40 cm LVOT VTI/AV VTI Ratio 1.2 LVOT Stroke Volume 112 ml LVOT CO 6.6 l/min LVOT CI 4.1 l/min/m2 Pulmonic Valve Name
== END 2023-11-28 13:27 | disposition home or self-care (01) ==
LOC: ANHCARD 13:28
PROVIDERS: PCP Family Medicine; Visit Provider Family Medicine
DX: I10 Essential (primary) hypertension (principal); R60.9 Edema, unspecified; I08.0 Rheumatic disorders of both mitral and aortic valves
CPT/HCPCS: 93306